=== PATIENT | male | born 1995 | race African-American/Black ===

== ENCOUNTER 2016-12-07 18:55 | Emergency (ER) | payer BC ==
[2016-12-07 19:06] VITALS: BP 139/95; PULSE 92; TEMP 98.6; BMI 23.1
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
[2016-12-07] MEDS ORDERED: TETANUS AND DIPHTHERIA TOXOID 0.5 ML DISP.SYRIN IM ONE (21:22)
== END 2016-12-07 22:30 | disposition home or self-care (01) ==
LOC: JERFT 18:55
PROC: 0HQEXZZ Repair Left Lower Arm Skin, External Approach (ICD-10-PCS; principal; 2016-12-07)
PROC: 0HQCXZZ Repair Left Upper Arm Skin, External Approach (ICD-10-PCS; 2016-12-07)
PROC: 3E0234Z Introduction of Serum, Toxoid and Vaccine into Muscle, Percutaneous Approach (ICD-10-PCS; 2016-12-07)
DX: S41.112A Laceration without foreign body of left upper arm, initial encounter (principal); Y04.0XXA Assault by unarmed brawl or fight, initial encounter; Y93.89 Activity, other specified; Y92.89 Other specified places as the place of occurrence of the external cause
CPT/HCPCS: 73090-TC-LT; 99281-25

== ENCOUNTER 2016-12-17 09:42 | Emergency (ER) | payer BC ==
[2016-12-17 09:46] VITALS: BP 143/64; PULSE 93; TEMP 98; BMI 23.1
--- NOTE | 2016-12-17 10:23 | PDOC ---
Suture Removal/Wound Check HPI - History of Present Illness Chief Complaint: Suture/Staple Removal(Here) Stated Complaint: STAPLE/SUTURE REMOVAL Time Seen by Provider: 12/17/16 10:04 History Source: Yes: Patient Exam Limitations: Yes: No Limitations Treated at: [facility] [place] Date of Last ED visit: 12/07/16 - Previous ED Treatment Type of procedure performed on last visit: Yes: Laceration Repair Tetanus Immunization: Yes: Given at last ED visit Antibiotics Prescribed: No - Onset of Previous Treatment Date of Occurence: 12/07/16 Past History - Past Medical History Allergies/Adverse Reactions: Allergies No Known Allergies Allergy (Verified 12/17/16 09:46) Home Medications: Ambulatory Orders NK [No Known Home Medication] 03/22/15 General: Yes: no pertinent history - Immunization History Immunizations Up to Date: Yes Tetanus Status: Unknown - Social History Smoking Status: Never smoked Suture Removal/Wound Check PE - Physical Exam Laceration/Wound Check Symptoms: reports: None Comments: 12/17/16 10:21 Left upper arm 2 lacerations one with 2 interrupted sutures another area 7 interrupted sutures placed on 12/07/2016. Pt. tetanus updated at that visit area healed well no signs of infection no fever and no surrounding redness Current Severity Level: None Maximum Severity Level: None Pain Localization: None Location of Laceration/Wound: left: Arm (at one area 2 interrupted sutures at another 7 interrupted sutures ) *Review of Systems - Review of Systems Able to Perform ROS?: Yes Constitutional: No: Symptoms Reported HEENTM: No: Symptoms Reported Respiratory: No: Symptoms reported Cardiac (ROS): No: Symptoms Reported ABD/GI: No: Symptoms Reported : No: Symptoms Reported Musculoskeletal: No: Symptoms Reported Integumentary: Yes: Other (left upper arm 2 separate areas one with 2 interrupted sutures and another 7 interrupted sutures obtained on 12/07/16 with no signs of infection) Procedures - Consent Consent obtained: From Patient - Additional Procedures Progress: 12/17/16 10:22 Suture removal left arm cleansed area with Betadine and normal saline 0.9% remove 2 sutures from one laceration on left upper arm without complication wound edges well approximated no signs of infection and remove 7 interrupted sutures from another area on left upper arm without complications or any bleeding wound edges well approximated with no signs of infection Medical Decision Making - Medical Decision Making 12/17/16 10:23 Suture removal left arm cleansed area with Betadine and normal saline 0.9% remove 2 sutures from one laceration on left upper arm without complication wound edges well approximated no signs of infection and remove 7 interrupted sutures from another area on left upper arm without complications or any bleeding wound edges well approximated with no signs of infection. Suture removal left upper arm *DC/Admit/Observation/Transfer Diagnosis at time of Disposition: Visit for suture removal - Discharge Dispostion Disposition: HOME Condition at time of disposition: Stable - Patient Instructions Additional Instructions: Continue to cleanse wounds with antibacterial soap and water pat dry and apply bacitracin to area until scab fall off Return to emergency room if any signs of infection redness around the area or tenderness or discharge Patient voiced understanding of discharge instructions and all questions were answered
== END 2016-12-17 10:36 | disposition home or self-care (01) ==
LOC: JERFT 09:42
DX: Z48.02 Encounter for removal of sutures (principal)
CPT/HCPCS: 99281-25